=== PATIENT | male | born 1960 | race Two or more races ===

== ENCOUNTER 2020-12-04 16:55 | Emergency (ER) | payer OTHER, SELFPAY ==
[~2020-12-04] VITALS: Ht 167.6 cm; Wt 85.0 kg
--- NOTE | 2020-12-04 17:46 | NUR ---
PT WITH +COVID IN 06/2020 RECOVERED AT HOME. DEVELOPED LEFT SIDE CP IN AUGUST AND WAS EVALUATED AT [facility]. NOW C/O LUQ ABD PAIN, AND PAIN UNDER LEFT LOWER RIB BUT DENIES ANY RADIATION TO CHEST. PAIN CONSISTENT OVER PAST WEEK. DR PARRISH AT BEDSIDE, POC DISCUSSED AND QUESTIONS ANSWERED. ALL MONITORS PLACED AND CALL LIGHT W/I REACH.
[2020-12-04] MEDS ORDERED: LISI-167 PO (17:52)
[2020-12-04] MEDS ORDERED: ATOR-2 PO (17:53)
[2020-12-04] MEDS ORDERED: OMEP-110 PO (17:53)
[2020-12-04 18:03] LABS: BASOPHILS % (AUTO) 1 % (0-1); EOSINOPHILS % (AUTO) 2 % (1-7); LYMPHOCYTES % (AUTO) 33 % (22-44); MEAN CORPUSCULAR HEMOGLOBIN 32.2 pg (27.5-34.5); MEAN CORPUSCULAR HGB CONC 35.5 g/dL (33.2-36.2); MEAN PLATELET VOLUME 6.7 fL (7.4-10.4); MONOCYTES % (AUTO) 8 % (2-9); NEUTROPHILS % (AUTO) 57 % (42-75); PLATELET COUNT 166 x10^3/uL (130-400); RED BLOOD COUNT 4.27 x10^6/uL (4.38-5.82); RED CELL DISTRIBUTION WIDTH 13.2 % (9.4-14.8)
[2020-12-04 18:09] LABS: ALBUMIN 3.5 g/dL (3.4-5.0); ANION GAP 5 mmol/L (5-15); CALCIUM 8.4 mg/dL (8.5-10.1); CHLORIDE 105 mmol/L (98-107)
[2020-12-04 18:10] LABS: MD NO
[2020-12-04 18:15] LABS: ALANINE AMINOTRANSFERASE 39 U/L (12-78); ALKALINE PHOSPHATASE 78 U/L (45-117); BILIRUBIN,TOTAL 0.5 mg/dL (0.2-1.0); CREATININE 1.07 mg/dL (0.7-1.3); TOTAL PROTEIN 6.8 g/dL (6.4-8.2); TROPONIN I < 0.015 ng/mL (0.000-0.045)
[2020-12-04 19:02] VITALS: BP 122/87
--- NOTE | 2020-12-04 19:02 | NUR ---
Patient/Caregiver given discharge instructions and they have confirmed that they understand the instructions. Patient ambulatory with steady gait.
== END 2020-12-04 20:05 | disposition home or self-care (01) ==
LOC: ED 19:10
DX: R07.89 Other chest pain (principal); G89.29 Other chronic pain; R10.12 Left upper quadrant pain; K21.9 Gastro-esophageal reflux disease without esophagitis; I10 Essential (primary) hypertension; E78.5 Hyperlipidemia, unspecified
CPT/HCPCS: 36415; 71045; 80053; 83690; 84484; 85025; 93005; 99285

== ENCOUNTER 2020-12-06 18:38 | Emergency (ER) | payer SELFPAY ==
[~2020-12-06] VITALS: Ht 167.6 cm; Wt 83.9 kg
[~2020-12-06 18:38] MED LIST: ATOR-2 PO; LISI-167 PO; OMEP-110 PO
--- NOTE | 2020-12-06 18:50 | NUR ---
Pt very very anxious, crying says he's worried he is going to , worried about lots of things. Says these sx been going on for month. On monitor NSR, RR 36 enc slow breathing, x2 IV placed, EKG done. Pt is a/ox4. ERP aware, waiting for further orders.
--- NOTE | 2020-12-06 18:59 | NUR ---
Labs drawn and sent, at bedside. Pt says since naziaid has been very anxious, generalized weakness, LUQ pain, chest pains. Feels like he is going to he says and is worried about leaving his family.. Hyperventilating, crying. VSS other than RR, encouraging slow deep breathing, reassurance. Waiting for further ERP orders; will continue to monitor.
--- NOTE | 2020-12-06 19:06 | NUR ---
No provider has picked up pt yet; informed charge nurse.
[2020-12-06] MEDS ORDERED: LORazepam 2 MG/ML, 1ML ONE (19:10)
--- NOTE | 2020-12-06 19:11 | NUR ---
Dr Edouard at bedside verbal order for 0.5mg ativan IV. VSS. Pt RR improving, RR back to baseline.
[2020-12-06] MEDS ORDERED: MAALOX/HYOSCYAMINE/LIDOCAINE 45 ML BTL ONE (19:24)
--- NOTE | 2020-12-06 19:27 | NUR ---
REPORT FROM PAULINO [employer] EXTENSION EDUCATOR OF CARE AT THIS TIME PT MOVED TO ROOM 2
--- NOTE | 2020-12-06 19:29 | NUR ---
Tx with belongings to room 2, report to regino.. Pt feels less anxious and says relaxed. Waiting for CTA.
[2020-12-06 19:30] LABS: BASOPHILS % (AUTO) 0 % (0-1); EOSINOPHILS % (AUTO) 2 % (1-7); LYMPHOCYTES % (AUTO) 56 % (22-44); MEAN CORPUSCULAR HEMOGLOBIN 32.4 pg (27.5-34.5); MEAN CORPUSCULAR HGB CONC 35.9 g/dL (33.2-36.2); MONOCYTES % (AUTO) 5 % (2-9); NEUTROPHILS % (AUTO) 37 % (42-75); PLATELET COUNT 225 x10^3/uL (130-400); RED BLOOD COUNT 4.77 x10^6/uL (4.38-5.82); RED CELL DISTRIBUTION WIDTH 13.9 % (9.4-14.8)
[2020-12-06] MEDS ORDERED: LORazepam 2 MG/ML, 1ML IVPush ONE (19:30)
[2020-12-06] MEDS ORDERED: MAALOX/HYOSCYAMINE/LIDOCAINE 45 ML BTL PO ONE (19:30)
[2020-12-06 19:34] LABS: ANION GAP 8 mmol/L (5-15); CALCIUM 9.2 mg/dL (8.5-10.1); CHLORIDE 103 mmol/L (98-107); CREATININE 1.24 mg/dL (0.7-1.3)
[2020-12-06 19:35] LABS: ALANINE AMINOTRANSFERASE 45 U/L (12-78)
[2020-12-06 19:39] LABS: ALKALINE PHOSPHATASE 102 U/L (45-117); BILIRUBIN,TOTAL 0.7 mg/dL (0.2-1.0); TOTAL PROTEIN 7.7 g/dL (6.4-8.2); TROPONIN I < 0.015 ng/mL (0.000-0.045)
[2020-12-06 19:48] LABS: MD SCAN
--- NOTE | 2020-12-06 20:04 | NUR ---
PT TO CT AT THIS TIME
[2020-12-06] MEDS ORDERED: OMNIPAQUE 350 MG/ML, 75ML BOTTLE ONE (20:27)
--- NOTE | 2020-12-06 20:37 | NUR ---
ALL RESULTS BACK CHART UP FOR RCK AT THIS TIME.
[2020-12-06] MEDS ORDERED: KETOROLAC 30 MG/1 ML ONE (21:19)
--- NOTE | 2020-12-06 21:20 | NUR ---
ERP AT BEDSIDE FOR POC RECHECK. PT TO BE DC.
[2020-12-06] MEDS ORDERED: KETOROLAC 30 MG/1 ML IVPush ONE (21:30)
[2020-12-06 21:45] VITALS: BP 142/75
--- NOTE | 2020-12-06 22:00 | NUR ---
Patient/Caregiver given discharge instructions and they have confirmed that they understand the instructions. Patient ambulatory with steady gait.
== END 2020-12-06 22:02 | disposition home or self-care (01) ==
LOC: ED 18:42
DX: R07.89 Other chest pain (principal); E78.5 Hyperlipidemia, unspecified; M79.10 Myalgia, unspecified site; R00.0 Tachycardia, unspecified; R06.02 Shortness of breath; R53.1 Weakness; I10 Essential (primary) hypertension; K21.9 Gastro-esophageal reflux disease without esophagitis
CPT/HCPCS: 36415; 71275; 80053; 84484; 85025; 93005; 96374; 96375; 99285; J1885; J2060; Q9967